=== PATIENT | male | born 1985 | race American Indian/Alaskan Native ===

== ENCOUNTER 2018-09-06 04:13 | Emergency (ER) | payer BC ==
--- NOTE | 2018-09-06 04:34 | ED PDOC ---
Arrival/HPI - General Chief Complaint: Lower Extremity Problem/Injury Time Seen by Provider: 09/06/18 04:27 Historian: Patient - History of Present Illness Narrative History of Present Illness (Text): 09/06/18 04:30 Trejo is a 33 year old male who presents to the Emergency department complaining of left ankle pain. Patient states he was playing basketball yesterday evening when he felt a popping sensation to his left ankle. Patient now complaining of left ankle swelling and pain. Patient denies any weakness/numbness/tingling in the extremity, other trauma/injury, or any other complaints. Symptom Onset: Gradual Symptom Course: Unchanged Activities at Onset: Light Context: Home Past Medical History - Provider Review Nursing Documentation Reviewed: Yes - Infectious Disease Hx of Infectious Diseases: None - Cardiac Hx Cardiac Disorders: No - Pulmonary Hx Respiratory Disorders: Yes Hx Bronchitis: Yes - Neurological Hx Neurological Disorder: No - HEENT Hx HEENT Disorder: No - Renal Hx Renal Disorder: No - Endocrine/Metabolic Hx Endocrine Disorders: No - Hematological/Oncological Hx Blood Disorders: No - Integumentary Hx Dermatological Disorder: No - Musculoskeletal/Rheumatological Hx Musculoskeletal Disorders: No - Gastrointestinal Hx Gastrointestinal Disorders: Yes Hx Gastroesophageal Reflux: Yes - Genitourinary/Gynecological Hx Genitourinary Disorders: No - Psychiatric Hx Psychophysiologic Disorder: No Hx Substance Use: No - Anesthesia Hx Anesthesia: No - Suicidal Assessment Feels Threatened In Home Enviroment: No Family/Social History - Physician Review Nursing Documentation Reviewed: Yes Family/Social History: Unknown Family HX Smoking Status: Never Smoked Hx Alcohol Use: Yes Frequency of alcohol use: Socially Hx Substance Use: No Allergies/Home Meds Allergies/Adverse Reactions: Allergies shellfish derived Allergy (Verified 09/06/18 04:35) ANAPHYLAXIS Home Medications: Home Meds Medication Instructions Recorded Confirmed No Known Home Med 09/06/18 09/06/18 Review of Systems - Physician Review All systems were reviewed & negative as marked: Yes - Review of Systems Constitutional: Normal. absent: Fevers Eyes: Normal ENT: Normal Respiratory: Normal. absent: SOB, Cough Cardiovascular: Normal. absent: Chest Pain Gastrointestinal: Normal. absent: Abdominal Pain, Diarrhea, Nausea, Vomiting Genitourinary Male: Normal. absent: Dysuria, Frequency, Hematuria, Urinary Output Changes Musculoskeletal: Arthralgias (+left ankle pain). absent: Back Pain, Neck Pain Skin: Normal. absent: Rash Neurological: Normal. absent: Headache, Dizziness Endocrine: Normal Hemo/Lymphatic: Normal Psychiatric: Normal Physical Exam Vital Signs Reviewed: Yes Temperature: Afebrile Blood Pressure: Normal Pulse: Regular Respiratory Rate: Normal Appearance: Positive for: Well-Appearing, Non-Toxic, Comfortable Pain Distress: None Mental Status: Positive for: Alert and Oriented X 3 - Systems Exam Head: Present: Atraumatic, Normocephalic Pupils: Present: PERRL Extroacular Muscles: Present: EOMI Conjunctiva: Present: Normal Mouth: Present: Moist Mucous Membranes Neck: Present: Normal Range of Motion Back: Present: Normal Inspection Upper Extremity: Present: Normal Inspection. No: Cyanosis, Edema Lower Extremity: Present: NORMAL PULSES, Normal ROM, Swelling (Swelling over left medial malleolus), Neurovascularly Intact, Capillary Refill < 2 s. No: Edema, Cyanosis, Tenderness, Erythema, Deformity, Temperature Abnormalties Neurological: Present: GCS=15, CN II-XII Intact, Speech Normal Skin: Present: Warm, Dry, Normal Color. No: Rashes Psychiatric: Present: Alert, Oriented x 3, Normal Insight, Normal Concentration Medical Decision Making ED Course and Treatment: 09/06/18 04:30 Impression: 33 year old male complaining of left ankle pain. Plan: -- XR Left Ankle -- Reassess and disposition Progress Notes: 09/06/18 05:00 XR Left Ankle reviewed, shows no acute fracture/processes. 09/06/18 05:04 On re-evaluation, patient feels better and is in no acute distress. I have discussed the results and plan with the patient, who expresses understanding. Patient in agreement with plan to be discharged home. Patient is stable for discharge. Patient was instructed to follow up with physician or return if symptoms worsen or new concerning symptoms arise. - Scribe Statement The provider has reviewed the documentation as recorded by the Ivon Og Provider Scribe Attestation: All medical record entries made by the Scribe were at my direction and personally dictated by me. I have reviewed the chart and agree that the record accurately reflects my personal performance of the history, physical exam, medical decision making, and the department course for this patient. I have also personally directed, reviewed, and agree with the discharge instructions and disposition. Disposition/Present on Arrival - Present on Arrival Any Indicators Present on Arrival: No History of DVT/PE: No History of Uncontrolled Diabetes: No Urinary Catheter: No History of Decub. Ulcer: No History Surgical Site Infection Following: None - Disposition Have Diagnosis and Disposition been Completed?: Yes Diagnosis: Left ankle sprain Disposition: HOME/ ROUTINE Disposition Time: 05:04 Condition: GOOD Discharge Instructions (ExitCare): Ankle Sprain (DC) Additional Instructions: use air cast 4 to 5 days Referrals: Emmanuel Su, [Staff Provider] - Follow up with primary Forms: [facility] (Ch[place]an), WORK NOTE
[2018-09-06 04:38] VITALS: BP 140/91; RESP 18
[2018-09-06 05:28] VITALS: PULSE 80; O2SAT 99
--- NOTE | 2018-09-06 10:26 | RAD ---
Date of service: 09/06/2018 PROCEDURE: Left Ankle Radiographs. HISTORY: fall COMPARISON: None available. FINDINGS: BONES: Bone alignment and mineralization are normal. There is no acute displaced fracture or bone destruction. There is an old deformity in the medial malleolus. There is a screw tract/postsurgical change in the talus. JOINTS: Normal. Ankle mortise maintained. Talar dome intact SOFT TISSUES: There is moderate medial soft tissue swelling. OTHER FINDINGS: None. IMPRESSION: No acute displaced fracture or dislocation. Moderate medial soft tissue swelling.
== END 2018-09-06 05:26 | disposition home or self-care (01) ==
LOC: ED 04:13
DX: S93.402A Sprain of unspecified ligament of left ankle, initial encounter (principal); X50.0XXA Overexertion from strenuous movement or load, initial encounter; Y93.67 Activity, basketball; Y92.310 Basketball court as the place of occurrence of the external cause

== ENCOUNTER 2019-03-08 16:38 | Emergency (ER) | payer BC ==
[2019-03-08 17:04] VITALS: BMI 24.2
[2019-03-08 17:05] VITALS: BP 126/85; PULSE 79; RESP 18; TEMP 98.6; O2SAT 95
--- NOTE | 2019-03-08 17:26 | ED PDOC ---
Arrival/HPI - General Chief Complaint: Lower Extremity Problem/Injury Time Seen by Provider: 03/08/19 17:10 Historian: Patient - History of Present Illness Time/Duration: 1 week Symptom Onset: Gradual Symptom Course: Worsening Quality: Aching Severity Level: Moderate Activities at Onset: Rest Associated Symptoms (Text): 03/08/19 17:23 Patient presents to the emergency department from home requesting that his left lower extremity lower leg cast be removed. But he states that approximately 6 months ago he injured his left foot. He has been back and forth to the orthopedic doctor. 1 week ago he had a short leg cast placed on his left lower extremity and he is unable to tolerate the cast. He is requesting that it be removed. I spoke with his orthopedic doctor [phone] who agrees that the short leg cast may be removed. The patient already has a cam walker and crutches. He is to be nonweightbearing. Past Medical History - Infectious Disease Hx of Infectious Diseases: None - Cardiac Hx Cardiac Disorders: No - Pulmonary Hx Respiratory Disorders: Yes Hx Bronchitis: Yes - Neurological Hx Neurological Disorder: No - HEENT Hx HEENT Disorder: No - Renal Hx Renal Disorder: No - Endocrine/Metabolic Hx Endocrine Disorders: No - Hematological/Oncological Hx Blood Disorders: No - Integumentary Hx Dermatological Disorder: No - Musculoskeletal/Rheumatological Hx Musculoskeletal Disorders: No - Gastrointestinal Hx Gastrointestinal Disorders: Yes Hx Gastroesophageal Reflux: Yes - Genitourinary/Gynecological Hx Genitourinary Disorders: No - Psychiatric Hx Psychophysiologic Disorder: No Hx Substance Use: No - Anesthesia Hx Anesthesia: No - Suicidal Assessment Feels Threatened In Home Enviroment: No Family/Social History - Physician Review Nursing Documentation Reviewed: Yes Family/Social History: Unknown Family HX Smoking Status: Never Smoked Hx Alcohol Use: Yes Hx Substance Use: No Allergies/Home Meds Allergies/Adverse Reactions: Allergies shellfish derived Allergy (Verified 09/06/18 04:35) ANAPHYLAXIS Home Medications: Home Meds Medication Instructions Recorded Confirmed No Known Home Med 09/06/18 09/06/18 Review of Systems - Physician Review All systems were reviewed & negative as marked: Yes Physical Exam Vital Signs Temp Pulse Resp BP Pulse Ox 03/08/19 17:04 98.6 F 79 18 126/85 95 Temperature: Afebrile Blood Pressure: Normal Pulse: Regular Respiratory Rate: Normal Appearance: Positive for: Well-Appearing, Non-Toxic, Uncomfortable Pain Distress: Mild Mental Status: Positive for: Alert and Oriented X 3 - Systems Exam Lower Extremity: Present: Normal Inspection, NORMAL PULSES, Tenderness, Neurovascularly Intact, Other (Left lower leg short leg cast in place. Post removal good pulses with no swelling and no skin changes.). No: CALF TENDERNESS , Brian's Sign, Swelling, Erythema, Deformity Medical Decision Making ED Course and Treatment: 03/08/19 17:26 The left lower extremity short leg cast was removed by myself. Patient's cam walker was placed. He does have crutches. Disposition/Present on Arrival - Present on Arrival Any Indicators Present on Arrival: No History of DVT/PE: No History of Uncontrolled Diabetes: No Urinary Catheter: No History of Decub. Ulcer: No History Surgical Site Infection Following: None - Disposition Have Diagnosis and Disposition been Completed?: Yes Diagnosis: Left ankle sprain Disposition: HOME/ ROUTINE Disposition Time: 17:26 Patient Plan: Discharge Condition: GOOD Discharge Instructions (ExitCare): Ankle Sprain
== END 2019-03-08 17:36 | disposition home or self-care (01) ==
LOC: ED 16:38
DX: S93.402D Sprain of unspecified ligament of left ankle, subsequent encounter (principal); X58.XXXD Exposure to other specified factors, subsequent encounter